=== PATIENT | female | born 1985 | race Caucasian/White ===

== ENCOUNTER 2017-01-24 16:21 | Emergency (ER) | payer OTHER ==
[2017-01-24 17:00] VITALS: BP 132/72
--- NOTE | 2017-01-24 18:59 | RAD ---
HISTORY: Lower abdominal pain, history of ectopic . Gestational age by dates of 5 weeks and 2 days COMPARISONS: None relevant TECHNIQUE: Multiple transverse and longitudinal ultrasound images were obtained of the pelvis using grayscale, color Doppler, spectral Doppler imaging and M-Mode Doppler imaging using the endovaginal transducer. FINDINGS: UTERUS: The uterus is normal in shape, size, contour, and echotexture. GESTATION: A gestational sac is noted without pole.. The mean sac diameter measures 0.7 cm for a gestational age of 5 weeks and 2 days. The ROSA is September 24, 2017. cardiac motion is not detected. Gross movement is not identified. anatomy cannot be assessed secondary to early dates. The amniotic fluid is qualitatively normal. There are no retroplacental fluid collections. CUL-DE-SAC: There is a small amount of simple fluid within the cul-de-sac. This may be physiologic in a reproductive age female. RIGHT OVARY: The right ovary measures 2.7 x 1.1 x 3.3 cm. Normal arterial and venous waveforms are identifiable within the ovary on spectral Doppler imaging. LEFT OVARY: The left ovary measures 4.1 x 2.7 x 3.4 cm. Normal arterial and venous waveforms are identifiable within the ovary on spectral Doppler imaging. A 2.4 cm simple cyst is noted of the left ovary. BLADDER: The bladder is not well visualized. IMPRESSION: A GESTATIONAL SAC IS IDENTIFIED WITHOUT POLE. THE GESTATIONAL AGE BY MEAN SAC DIAMETER IS 5 WEEKS AND 2 DAYS WHICH IS CONCORDANT WITH AGE BY DATES. RECOMMEND FOLLOW-UP EXAMINATION AND CORRELATION WITH SERIAL BETA-HCG LEVELS.
--- NOTE | 2017-01-24 19:09 | ED ---
- HPI Summary HPI Summary: 31F with unknown LMP presents with pelvic pain and ruptured bartholin cyst. She had a previous cyst that was drained by dr Pinzon. She states that she has had the cyst for 7 years and that it caused her no pain till a couple days ago. She states that she made an appointment with dr Pinzon to have it drained but today it ruptured and she had yellow discharge from it and it continues to drain. She states she has some pain and the site but also lower abdominal pain. She has history of ectopic and is concerned is having one. She denies any vaginal bleeding. - History of Current Complaint Chief Complaint: EDOBProblems Stated Complaint: VAGINAL CYST RUPTURED Time Seen by Provider: 01/24/17 17:37 Pain Intensity: 5 - Assessment Hx Now: No - Allergies/Home Medications Allergies/Adverse Reactions: Allergies Allergy/AdvReac Type Severity Reaction Status Date / Time No Known Allergies Allergy Verified 07/10/13 18:39 PMH/Surg Hx/FS Hx/Imm Hx Endocrine/Hematology History: Denies: Hx Diabetes, Hx Thyroid Disease Cardiovascular History: Denies: Hx Hypertension Respiratory History: Denies: Hx Asthma, Hx Chronic Obstructive Pulmonary Disease (COPD) GI History: Denies: Hx Ulcer - Surgical History Surgery Procedure, Year, and Place: csections x2 Infectious Disease History: No Infectious Disease History: Denies: Hx Hepatitis, Hx Human Immunodeficiency Virus (HIV), Traveled Outside the [place] in Last 30 Days - Family History Known Family History: Positive: Hypertension - Social History Alcohol Use: None Substance Use Type: Reports: None Smoking Status (MU): Never Smoked Tobacco Review of Systems Negative: Fever Negative: Chest Pain Negative: Shortness Of Breath Positive: Abdominal Pain - pelvic pain, Other - drainage from cyst. Negative: Vomiting, Diarrhea, Nausea Negative: discharge All Other Systems Reviewed And Are Negative: Yes Physical Exam - Physical Exam Triage Information Reviewed: Yes Vital Signs Reviewed: Yes Appearance: Positive: Well-Appearing Skin: Positive: Warm, Dry Head/Face: Positive: Normal Head/Face Inspection Eyes: Positive: Normal, Conjunctiva Clear ENT: Positive: Normal ENT inspection, Pharynx normal, TMs normal Respiratory/Lung Sounds: Positive: Clear to Auscultation, Breath Sounds Present Cardiovascular: Positive: Normal, RRR Abdomen Description: Positive: Soft, Other: - mild pelvic pain, draining bartholin cyst present with serosangious fluid present, no vaginal bleeding present Bowel Sounds: Positive: Present Diagnostics - Vital Signs Vital Signs Temp Pulse Resp BP Pulse Ox 01/24/17 16:55 99.4 F 70 16 132/72 99 01/24/17 16:25 99.3 F 84 16 144/77 100 - Laboratory Result Diagrams: 01/24/17 19:21 01/24/17 19:21 Lab Statement: Any lab studies that have been ordered have been reviewed, and results considered in the medical decision making process. - Ultrasound No standard instances Ultrasound Interpretation: Positive (See Comments) - IMPRESSION: A GESTATIONAL SAC IS IDENTIFIED WITHOUT POLE. THE GESTATIONAL AGE BY MEAN SAC DIAMETER IS 5 WEEKS AND 2 DAYS WHICH IS CONCORDANT WITH AGE BY DATES. RECOMMEND FOLLOW- UP EXAMINATION AND CORRELATION WITH SERIAL BETA-HCG LEVELS. Ultrasound Interpretation Completed By: Radiologist Course/Dx - Course Course Of Treatment: 31F with unknown LMP presents with pelvic pain and ruptured bartholin cyst. She had a previous cyst that was drained by dr Pinzon. She states that she has had the cyst for 7 years and that it caused her no pain till a couple days ago. She states that she made an appointment with dr Pinzon to have it drained but today it ruptured and she had yellow discharge from it and it continues to drain. She states she has some pain and the site but also lower abdominal pain. She has history of ectopic and is concerned is having one. She denies any vaginal bleeding. on exam mild tenderness in lower abdomen. serosanguinous drainage from cyst. u/s shows iup. told to follow up with dr pinzon. patient understands and agrees with plan - Differential Diagnosis/HQI/PQRI: Bartholin Cyst, Ectopic , Intrauterine - Diagnoses Provider Diagnoses: , Bartholin cyst Discharge - Discharge Plan Condition: Good Disposition: HOME Patient Education Materials: Bartholin Cyst (ED) Referrals: Cherry Ludwig MD [Primary Care Provider] - Chandrakant Pinzon MD [Medical Doctor] - Additional Instructions: Keep area clean Follow up with obgyn Return to ED if develop any new or worsening symptoms
[2017-01-24 19:29] LABS: Hematocrit 39 % (35-47); Hemoglobin 12.7 g/dl (12.0-16.0); Mean Corpuscular HGB Conc 33 g/dl (31-36); Mean Corpuscular Hemoglobin 28 pg (27-31); Mean Corpuscular Volume 85 fL (80-97); Mean Platelet Volume 8 um3 (7.4-10.4); Red Blood Count 4.59 10^6/ul (4.0-5.4); Red Cell Distribution Width 13 % (10.5-15); White Blood Count 6.9 10^3/ul (3.5-10.8)
[2017-01-24 19:42] LABS: Albumin 3.9 g/dL (3.2-5.2); BUN/Creatinine Ratio 11.4 (8-20); Calcium 8.8 mg/dL (8.6-10.3); EGFR African American 109.9 (>60); EGFR Non-African American 85.5 (>60); Globulin 2.7 g/dL (2-4); Total Bilirubin 0.2 mg/dL (0.2-1.0); Total Protein 6.6 g/dL (6.4-8.9)
== END 2017-01-24 20:50 | disposition home or self-care (01) ==
LOC: ED 16:21
DX: Z34.91 Encounter for supervision of normal pregnancy, unspecified, first trimester (principal); N75.0 Cyst of Bartholin's gland; R10.9 Unspecified abdominal pain; R10.2 Pelvic and perineal pain
CPT/HCPCS: 36415; 76817; 80053; 84702; 85025; 86900; 86901; 99282

== ENCOUNTER 2017-09-01 06:04 | Inpatient (IN) | payer MEDICAID ==
[~2017-09-01 06:04] MED LIST: Buffered Lidocaine 0.9% SYRIN* 5 ML/SYR SYRINGE INTRADERM ONE; Famotidine IV* 10 MG/ML 2 ML (20 mg) IV ONE; Sodium Citrate/Citric Acid* 15 ML UDC PO ONE
[2017-09-01] MEDS ORDERED: ceFOXitin(*) 2 GM in NS 0.9% 100 ML* 100 ML IVPB ONE (07:30)
[2017-09-01] MEDS ORDERED: OXYTOCIN* 10 UNITS/ML 1 ML VIAL ONE (07:37)
[2017-09-01] MEDS ORDERED: Morphine PF AMP (0.5MG/ML)* 5 MG/10 ML AMP ONE (07:37)
[2017-09-01] MEDS ORDERED: Dexamethasone IV* 4 MG/ML 1 ML (4 MG) ONE (07:37)
[2017-09-01] MEDS ORDERED: Ondansetron INJ* 2 MG/ML VIAL ONE (07:37)
[2017-09-01] MEDS ORDERED: Atropine 1MG/ML INJ* 1 ML VIAL ONE (08:15)
[2017-09-01] MEDS ORDERED: EPHEDrine (Pressors)* 50 MG/ML VIAL ONE (08:15)
[2017-09-01] MEDS ORDERED: Phenylephrine IV* 40 MCG/ML 10 ML SYRINGE ONE (08:16)
[2017-09-01] MEDS ORDERED: Scopolamine PATCH Remove* 1 NOTE MISC PATCH OFF PRN (08:16)
[2017-09-01] MEDS ORDERED: fentaNYL* 50 MCG/ML 2 ML VIAL (100 MCG VIAL) IV PRN (08:16)
[2017-09-01] MEDS ORDERED: DiMENhydriNATE IV* 50 MG/ML VIAL IV PUSH PRN (08:16)
[2017-09-01] MEDS ORDERED: Ketorolac INJ* 30 MG/ML 1 ML VIAL IV PRN (08:16)
[2017-09-01] MEDS ORDERED: Nalbuphine* 20 MG/ML 1 ML VIAL IV PRN ×2 (08:16)
[2017-09-01] MEDS ORDERED: Ondansetron INJ* 2 MG/ML VIAL IV PRN (08:16)
[2017-09-01] MEDS ORDERED: Naloxone* 0.4 MG/ML 1 ML VIAL IV PRN ×2 (08:16)
[2017-09-01] MEDS ORDERED: oxyCODONE/Acetamin 5/325 MG* TAB PO PRN ×2 (08:16)
[2017-09-01] MEDS ORDERED: Scopolamine 1.5 mg* PATCH TRANSDERM PRN (08:16)
[2017-09-01] MEDS ORDERED: Dibucaine 1% 28.35 GM TUBE PR PRN (09:10)
[2017-09-01] MEDS ORDERED: Witch Hazel PAD* JAR TOPICAL PRN (09:10)
[2017-09-01] MEDS ORDERED: Ibuprofen TAB* 600 MG PO PRN (09:10)
[2017-09-01] MEDS ORDERED: Glycerin ADULT SUPP PR PRN (09:10)
[2017-09-01] MEDS ORDERED: Zolpidem TAB* 5 MG PO PRN (09:10)
[2017-09-01] MEDS ORDERED: Ibuprofen TAB* 600 MG ONE (09:49)
[2017-09-01] MEDS: Ibuprofen TAB* 600 MG PO SCH ×2 (09:52→17:25)
[2017-09-01] MEDS: Docusate CAP* 100 MG PO SCH ×2 (12:25→21:02)
[2017-09-01] MEDS: Simethicone TAB* 80 MG TAB.CHEW PO SCH ×3 (12:25→21:02)
[2017-09-02] MEDS ORDERED: oxyCODONE/Acetamin 5/325 MG* TAB PO PRN ×2
[2017-09-02] MEDS: Ibuprofen TAB* 600 MG PO SCH ×4 (00:16→23:52)
[2017-09-02] MEDS: Acetaminophen TAB* 325 MG PO PRN ×3 (04:18→20:30)
[2017-09-02 06:30] LABS: ABS Basophils 0 10^3/ul (0-0.2); ABS Eosinophils 0.1 10^3/ul (0-0.6); ABS Lymphocytes 1.8 10^3/ul (1.0-4.8); ABS Monocytes 0.8 10^3/ul (0-0.8); ABS Neutrophils 6.5 10^3/ul (1.5-7.7); ABS Nucleated RBC 0 10^3/ul; Eosinophil % 1.2 % (0-6); Hematocrit 34 % (35-47); Hemoglobin 11.5 g/dl (12.0-16.0); Lymphocyte % 19.3 % (25-47); Mean Corpuscular HGB Conc 34 g/dl (31-36); Mean Corpuscular Hemoglobin 28 pg (27-31); Mean Corpuscular Volume 84 fL (80-97); Mean Platelet Volume 8 um3 (7.4-10.4); Nucleated Red Blood Cells % 0.1; Platelet Count 144 10^3/ul (150-450); Red Blood Count 4.08 10^6/ul (4.0-5.4); Red Cell Distribution Width 14 % (10.5-15); White Blood Count 9.2 10^3/ul (3.5-10.8)
[2017-09-02] MEDS: Simethicone TAB* 80 MG TAB.CHEW PO SCH ×4 (09:00→20:29)
[2017-09-02] MEDS: Docusate CAP* 100 MG PO SCH ×3 (09:00→20:30)
[2017-09-02] MEDS ORDERED: Ferrous Gluconate TAB* 324 MG TAB PO SCH (09:00)
[2017-09-02] MEDS: Cephalexin CAP* 500 MG PO SCH (20:30)
--- NOTE | 2017-09-02 22:29 | PTEDU ---
Patient Name: ALEX NIX ALEX NIX selected video: Follow Me Mum: The [place] to Successful to view on 09/02/2017 at 10:28:35 PM [id number]
[2017-09-03] MEDS: Ibuprofen TAB* 600 MG PO SCH (06:52)
[2017-09-03] MEDS: Acetaminophen TAB* 325 MG PO PRN ×2 (06:55→10:50)
[2017-09-03] MEDS: Cephalexin CAP* 500 MG PO SCH (08:02)
[2017-09-03] MEDS: Docusate CAP* 100 MG PO SCH (08:02)
[2017-09-03] MEDS: Simethicone TAB* 80 MG TAB.CHEW PO SCH (08:02)
[2017-09-03 08:55] VITALS: BP 140/91
--- NOTE | 2017-09-06 01:06 | OP ---
DATE OF OPERATION: 09/01/17 - ROOM #117 DATE OF : 87 SURGEON: Chandrakant Waddell MD JET PIERCER OPERATOR: Dr. Milton. ANESTHESIA: Spinal. PRE-OP DIAGNOSIS: Intrauterine at 37 weeks with a prior classical uterine incision, prior section and the patient desires permanent sterilization. POST-OP DIAGNOSIS: Intrauterine at 37 weeks with a prior classical uterine incision, prior section and the patient desires permanent sterilization. OPERATIVE PROCEDURE: Repeat low-transverse section and a right fimbriectomy. Preoperatively, she also had a previous left salpingectomy. ESTIMATED BLOOD LOSS: 700 cc. SPECIMENS SENT TO PATHOLOGY: Right tubal fimbria and cord blood. FLUIDS: She received 1700 cc of IV crystalloid fluid. URINE OUTPUT: Clear. FINDINGS: Delivery of a male weighing 6 pounds and 6 ounces with ' s of 10 and 10. The placenta, uterus, right tube and ovary were within normal limits. The left ovary is within normal limits. There is evidence of a prior salpingectomy of the left tube and bowel and bladder were within normal limits. There were no complications during this procedure. DESCRIPTION OF PROCEDURE: The patient was taken to the operating room, where she was identified. She was placed on the operating table, where a spinal anesthetic was obtained without difficulty. She was placed in the supine position with a leftward tilt, prepped and draped in the normal sterile fashion. A Pfannenstiel skin incision was made with a knife and carried through to underlying layer of fascia. The fascia was nicked in the midline and extended laterally with curved Velazquez scissors. The fascia was grasped superiorly and inferiorly with Rich clamps and dissected off sharply from the rectus muscle. The rectus muscle was in the midline bluntly. The peritoneum was identified, grasped with pickups, and entered sharply with Metzenbaum scissors. The peritoneum was then extended laterally bluntly. The bladder blade was inserted into the patient's abdomen and a bladder flap was created using Metzenbaum scissors over which the bladder blade was then reinserted. A low-transverse uterine incision was made with a knife and extended laterally with curved Velazquez scissors. The amniotic sac was ruptured. Fluid was noted to be clear. The 's head was then delivered atraumatically , the rest of the body was delivered. The cord was clamped and cut. The infant was then given to the multiple games dealer. Cord bloods were obtained. The placenta was removed manually. The uterus was then exteriorized and cleared of all clots and debris using moist laparotomy sponges. The uterine incision was closed using 0 Polysorb suture in a running locked fashion, the second imbricating layer of 0 Polysorb suture. Closed the uterine incision and it was noted to be hemostatic. Attention was then brought on to the patient's right fallopian tube with a right fimbriectomy was done in a usual fashion using 3-0 Polysorb suture. The portion of the right fimbria was sent to pathology. At this point , the uterus was returned to the patient's abdomen. The gutters were then cleared of all clot and debris using moist laparotomy sponges. All the sponges and instruments were removed from the patient's abdomen. The peritoneum was closed using 3-0 Polysorb suture in a running fashion. The fascia was closed using 0 Polysorb suture in a running fashion. The skin was closed with Monocryl subcuticular stitch. The patient tolerated the procedure well. Sponge , lap, and needle counts were correct x2. She was then transferred to the recovery room area in stable condition. [id number]/[facility] #: [id number] MTDD
== END 2017-09-03 11:03 | disposition home or self-care (01) | DRG 540 ==
LOC: MCHOB 06:04
PROVIDERS: ADMIT Obstetrics & Gynecology; ATTEND Obstetrics & Gynecology
PROC: 0UB50ZZ Excision of Right Fallopian Tube, Open Approach (ICD-10-PCS; 2017-09-01)
PROC: 10D00Z1 Extraction of Products of Conception, Low, Open Approach (ICD-10-PCS; principal; 2017-09-01 07:45)
DX: O34.211 Maternal care for low transverse scar from previous cesarean delivery (principal); D64.9 Anemia, unspecified; O90.81 Anemia of the puerperium; Z3A.37 37 weeks gestation of pregnancy; Z37.0 Single live birth
CPT/HCPCS: 36415; 85025; 88305; A9270-GY; J0461; J0694; J1100; J2405; J2590

== ENCOUNTER 2018-02-14 18:00 | Emergency (ER) | payer MEDICAID ==
[2018-02-14 18:39] VITALS: BP 155/92
--- NOTE | 2018-02-14 19:05 | UC ---
HPI Febrile Illness - HPI Summary HPI Summary: 32-year-old female presents with onset of sore throat and fever this morning. Reports she has had episodes of strep throat in the past however none in the last several years. Fever at home as been as high as 101 F. Associated with a mild headache. Denies dysphagia, nasal congestion or drainage, ear pain or drainage, cough, shortness of breath, chest pain, abdominal pain, nausea, vomiting, diarrhea, dysuria, frequency, urgency, hematuria, or vaginal discharge. She lives at home with her partner and 4 children including an . She is presently breast-feeding just at night. Denies any sick contact. Last menstrual period was approximately 2 weeks ago. Past surgical history significant for tubal ligation with her last . - History of Current Complaint Chief Complaint: UCGeneralIllness Time Seen by Provider: 02/14/18 18:33 Hx Obtained From: Patient Hx Last Menstrual Period: 01/28/18 Timing: Constant Initial Severity: Moderate Current Severity: Moderate Pain Intensity: 6 Aggravating Factors: Other: - Swallowing Alleviating Factors: OTC Medicine Associated Signs and Symptoms: Chills, Sore Throat - Risk Factors Serious Bacterial Infection Risk Factors: Negative - Allergy/Home Medications Allergies/Adverse Reactions: Allergies Allergy/AdvReac Type Severity Reaction Status Date / Time No Known Allergies Allergy Verified 02/14/18 18:39 PMH/Surg Hx/FS Hx/Imm Hx - Additional Past Medical History Additional PMH: Noncontributory - Surgical History Surgical History: Yes Surgery Procedure, Year, and Place: csections x2 - Family History Known Family History: Positive: Hypertension - Social History Occupation: Employed Full-time Lives: With Family Alcohol Use: None Substance Use Type: None Smoking Status (MU): Never Smoked Tobacco - Immunization History Most Recent Influenza Vaccination: 04/11/17 Most Recent Pneumonia Vaccination: none Review of Systems Constitutional: Fever, Chills Skin: Negative Eyes: Negative ENT: Sore Throat Respiratory: Negative Cardiovascular: Negative Gastrointestinal: Negative Genitourinary: Negative Is Patient Immunocompromised?: No All Other Systems Reviewed And Are Negative: Yes Physical Exam Triage Information Reviewed: Yes Appearance: Well-Appearing, No Pain Distress, Well-Nourished Vital Signs: Initial Vital Signs Temp 100.7 F 02/14/18 18:35 Pulse 124 02/14/18 18:35 Resp 20 02/14/18 18:35 BP 155/92 02/14/18 18:35 Pulse Ox 99 02/14/18 18:35 Eyes: Positive: Conjunctiva Clear ENT: Positive: Hearing grossly normal, Pharyngeal erythema, TMs normal, Tonsillar swelling - 3+, Tonsillar exudate, Uvula midline. Negative: Nasal congestion, Nasal drainage, Trismus, Muffled voice, Hoarse voice, Sinus tenderness Neck: Positive: Supple, Nontender, Enlarged Nodes @ - Bilateral anterior cervical Respiratory: Positive: Lungs clear, Normal breath sounds, No respiratory distress Cardiovascular: Positive: RRR, No Murmur, Tachycardia Abdomen Description: Positive: Nontender, No Organomegaly, Soft. Negative: CVA Tenderness (R), CVA Tenderness (L) Bowel Sounds: Positive: Present Skin Exam: Normal Course/Dx - Course Course Of Treatment: 32-year-old female presents with onset of sore throat and fever this morning. Rapid strep was negative however on exam she has 3+ erythematous tonsils with exudate and anterior cervical lymphadenopathy that is very suspicious for strep throat. She has an at home and is currently breast feeding at night. Will obtain a throat culture and begin empiric treatment for strep throat with amoxicillin 500 mg twice a day 10 days pending these results. Recommend additional conservative therapies including pushing fluids, salt water gargles, and [id number] acetaminophen or ibuprofen as needed for fever or pain. Follow up with primary care provider if no improvement in symptoms. - Diagnoses Clinic Provider Diagnoses: Acute pharyngitis suspect group A strep infection Discharge - Sign-Out/Discharge Documenting (check all that apply): Patient Departure - Discharge Plan Condition: Stable Disposition: HOME Prescriptions: Amoxicillin 500 mg PO BID #20 capsule Patient Education Materials: Pharyngitis (ED) Referrals: Cherry Ludwig MD [Primary Care Provider] - If Needed Additional Instructions: Your rapid strep test in the clinic today was negative however her exam is very suspicious for strep throat. We will start to on an antibiotic pending the results of the throat culture that was obtained today. It will take 48-72 hours to obtain these results. Please call in 3 days if you have not heard from us. Start amoxicillin 500 mg twice daily for 10 days. He should complete the entire course of antibiotic even if you're feeling better. Take [id number] acetaminophen (Tylenol) or ibuprofen (Advil, Motrin) according directions as needed for fever or pain. Be sure to drink plenty of fluids. Use salt water gargles several times throughout the day for your sore throat. After you've been on your antibiotics for at least 3 days change out her toothbrush to prevent reinfection. Follow up with her primary care provider if there is no improvement in her symptoms. - Billing Disposition and Condition Condition: STABLE Disposition: Home
== END 2018-02-14 19:25 | disposition home or self-care (01) ==
LOC: UCEAST 18:00
DX: J02.9 Acute pharyngitis, unspecified (principal)
CPT/HCPCS: 87070; 87651; 99212; G0463

== ENCOUNTER 2019-06-24 10:22 | Emergency (ER) | payer MEDICAID, OTHER ==
[2019-06-24 10:35] VITALS: BP 110/78
--- NOTE | 2019-06-24 10:53 | UC ---
FLU HPI - HPI Summary HPI Summary: 34-year-old female presents with 4 day history of general malaise, body aches, nasal congestion, postnasal drip, sore throat, and occasional dry nonproductive cough. Her son is sick with similar symptoms. Denies fever, chills, ear pain, dysphagia, chest pain, difficulty breathing, abdominal pain, nausea, vomiting, or diarrhea. - History of Current Complaint Chief Complaint: UCRespiratory Stated Complaint: HEADACHE,COUGH Time Seen by Provider: 06/24/19 10:37 Hx Obtained From: Patient Hx Last Menstrual Period: 05/27/19 Pain Intensity: 6 - Allergy/Home Medications Allergies/Adverse Reactions: Allergies Allergy/AdvReac Type Severity Reaction Status Date / Time adhesive tape Allergy itchy hives Verified 06/24/19 10:36 PMH/Surg Hx/FS Hx/Imm Hx Previously Healthy: Yes - Denies significant PMH - Surgical History Surgical History: Yes Surgery Procedure, Year, and Place: csections x3 tubal x 2. 09/01/17 - Family History Known Family History: Positive: Hypertension - Social History Occupation: Unemployed Lives: With Family Alcohol Use: None Substance Use Type: None Smoking Status (MU): Never Smoked Tobacco - Immunization History Most Recent Influenza Vaccination: 04/11/17 Most Recent Pneumonia Vaccination: none Review of Systems All Other Systems Reviewed And Are Negative: Yes Constitutional: Negative: Fever, Chills Skin: Negative: Rash Eyes: Negative: Drainage, Eye Redness ENT: Positive: Sore Throat, Nasal Discharge, Sinus Congestion. Negative: Ear Ache, Sinus Pain/Tenderness Respiratory: Positive: Cough. Negative: Shortness Of Breath Cardiovascular: Negative: Chest Pain Gastrointestinal: Negative: Abdominal Pain, Vomiting, Diarrhea, Nausea Genitourinary: Positive: Negative Musculoskeletal: Positive: Myalgia Neurological: Positive: Negative Is Patient Immunocompromised?: No Physical Exam - Summary Physical Exam Summary: GENERAL APPEARANCE: Well developed, well nourished, alert and cooperative, and appears to be in no acute distress. EYES: Conjunctiva clear. No drainage. EARS: External auditory canals and tympanic membranes clear, hearing grossly intact. NOSE: Mild-moderate nasal congestion. No nasal discharge. THROAT: Mild pharyngeal erythema with postnasal drip. No tonsilar inflammation, swelling, exudate, or lesions. Uvula midline. NECK: Neck supple, non-tender without lymphadenopathy. CARDIAC: Normal S1 and S2. No S3, S4 or murmurs. Rhythm is regular. There is no peripheral edema, cyanosis or pallor. Extremities are warm and well perfused. Capillary refill is less than 2 seconds. Peripheral pulses intact. LUNGS: Clear to auscultation without rales, rhonchi, wheezing or diminished breath sounds. Dry, nonproductive cough. ABDOMEN: Positive bowel sounds. Soft, nondistended, nontender. No guarding or rebound. No masses or hepatosplenomegally. MUSKULOSKELETAL: ROM intact to all extremities. No joint erythema or tenderness. Normal muscular development. Normal gait. SKIN: Skin normal color, texture and turgor with no lesions or eruptions. Triage Information Reviewed: Yes Vital Signs: Initial Vital Signs Temp 98 F 06/24/19 10:33 Pulse 100 06/24/19 10:33 Resp 20 06/24/19 10:33 BP 110/78 06/24/19 10:33 Pulse Ox 98 06/24/19 10:33 Vital Signs Reviewed: Yes Flu Course/Dx - Course Course Of Treatment: 34-year-old female presents with 4 day history of general malaise, body aches, nasal congestion, postnasal drip, sore throat, and occasional dry nonproductive cough. Her son is sick with similar symptoms. Denies fever, chills, ear pain, dysphagia, chest pain, difficulty breathing, abdominal pain, nausea, vomiting, or diarrhea. Afebrile. Vital signs stable. Patient had mild to moderate nasal congestion, pharyngeal erythema with postnasal drip, no tonsillar swelling or exudate, no cervical lymphadenopathy, clear bilateral breath sounds , dry nonproductive cough, but otherwise unremarkable exam. Rapid strep test was negative. Recommending symptomatically treatment for a viral upper respiratory infection. She is to follow-up with her primary care provider in 3- 5 days if symptoms are not improving. Anticipatory guidance warning symptoms reviewed with the patient. Verbalized understanding and agrees with plan of care. - Differential Dx/Diagnosis Differential Diagnosis/HQI/PQRI: Bronchitis, Influenza, Pneumonia, Upper Respiratory Infection Provider Diagnosis: Upper respiratory infection, acute Discharge ED - Sign-Out/Discharge Documenting (check all that apply): Patient Departure All imaging exams completed and their final reports reviewed: No Studies - Discharge Plan Condition: Stable Disposition: HOME Patient Education Materials: Upper Respiratory Infection (ED) Referrals: Cherry Ludwig MD [Primary Care Provider] - 3 Days (Follow up in 3-5 days if symptoms persist.) Additional Instructions: The rapid strep test performed in the clinic today was negative. Your history and exam are consistent with a viral upper respiratory infection. Viral infections do not respond to antibiotics and are limited to the treatment of symptoms. Viral infections typically run their course in 7-10 days. Drink plenty of fluids to avoid dehydration especially if you are running any fever. Use a saline rinse kit such as Neti Pot or NeilMed at least twice a day to help thin secretions and promote drainage of the sinuses. Use fluticasone (Flonase) nasal spray 2 sprays each nostril once daily. Use an over the counter decongestant such as Sudafed according to directions for any congestion. Take over the counter acetaminophen (Tylenol) or ibuprofen (Advil, Motrin) according to directions as needed for pain or fever. Use salt water gargles several times a day if you have a sore throat. You may also use Chloraseptic spray or Cepacol lonzenges according to directions which contain a numbing medication and can provide some temporary relief from your sore throat. Follow up with your primary care provider in 3-5 days if symptoms persist. Seek immediate medical attention in the emergency room if you have fever greater than 100.5 F despite taking acetaminophen or ibuprofen, have chest pain , difficulty breathing, are unable to swallow, or have any worsening of symptoms. - Billing Disposition and Condition Condition: STABLE Disposition: Home
== END 2019-06-24 11:36 | disposition home or self-care (01) ==
LOC: UCEAST 10:22
DX: J06.9 Acute upper respiratory infection, unspecified (principal); Z91.09 Other allergy status, other than to drugs and biological substances
CPT/HCPCS: 87651; 99211; G0463

== ENCOUNTER 2019-07-08 21:30 | Emergency (ER) | payer OTHER ==
[2019-07-08 21:42] VITALS: BP 140/84
--- NOTE | 2019-07-08 21:57 | UC ---
General HPI - HPI Summary HPI Summary: Patient is a 34-year-old female presenting with possible pinkeye of right eye, nasal congestion, postnasal drip, sinus tenderness, and sore throat 1 month. Patient states she was seen here approximately one month ago and diagnosed with viral upper respiratory infection. Patient states postnasal drip and sinus symptoms have gradually worsened since. Notes cough worsening due to postnasal drip. Denies shortness of breath and wheezing. Patient states sore throat has not resolved either, with the left side hurting worse than the right. Patient also notes "lump" on the left side of her neck. She states yellow discharge and redness of right eye began today. Denies vision changes. Notes fatigue. Denies fever or chills. Denies nausea and vomiting. - History of Current Complaint Chief Complaint: UCEye Stated Complaint: PINK EYE, COUGH Time Seen by Provider: 07/08/19 21:36 Hx Obtained From: Patient Hx Last Menstrual Period: 06/26/2019 Onset/Duration: Gradual Onset, Lasting Weeks Current Severity: Moderate Pain Intensity: 5 - Allergy/Home Medications Allergies/Adverse Reactions: Allergies Allergy/AdvReac Type Severity Reaction Status Date / Time adhesive tape Allergy itchy hives Verified 06/24/19 10:36 PMH/Surg Hx/FS Hx/Imm Hx Previously Healthy: Yes - Surgical History Surgical History: Yes Surgery Procedure, Year, and Place: csections x3 tubal x 2. 09/01/17 - Family History Known Family History: Positive: Hypertension - Social History Alcohol Use: None Substance Use Type: None Smoking Status (MU): Never Smoked Tobacco - Immunization History Most Recent Influenza Vaccination: 04/11/17 Most Recent Pneumonia Vaccination: none Review of Systems All Other Systems Reviewed And Are Negative: Yes Constitutional: Positive: Fatigue. Negative: Fever, Chills Eyes: Positive: Drainage - yellow drainage R eye, Eye Redness - right. Negative : Photophobia ENT: Positive: Sore Throat - worse on Left, Nasal Discharge - PND, Sinus Congestion, Sinus Pain/Tenderness Respiratory: Positive: Cough. Negative: Shortness Of Breath Cardiovascular: Positive: Negative Gastrointestinal: Positive: Negative Musculoskeletal: Positive: Negative Neurological: Positive: Negative Physical Exam Triage Information Reviewed: Yes Appearance: Well-Appearing, No Pain Distress, Well-Nourished Vital Signs: Initial Vital Signs Temp 97.7 F 07/08/19 21:36 Pulse 73 07/08/19 21:36 Resp 16 07/08/19 21:36 BP 140/84 07/08/19 21:36 Pulse Ox 98 07/08/19 21:36 Lab Results 07/08/19 Range/Units 22:10 Group A Strep Rapid Negative (Negative) Vital Signs Reviewed: Yes Eye Exam: Other - PERRLA. EOM intact Eyes: Positive: Conjunctiva Inflamed - right, Discharge - yellow drainage ENT: Positive: Hearing grossly normal, Pharyngeal erythema, Nasal congestion, Nasal drainage - PND, TMs normal, Tonsillar swelling - b/l, Sinus tenderness - maxillary, Uvula midline. Negative: Tonsillar exudate, Trismus, Muffled voice, Hoarse voice Neck: Positive: Supple, Tenderness @ - tonsillar nodes, Enlarged Nodes @ - tonsillar and left posterior cervical node Respiratory Exam: Normal Respiratory: Positive: Lungs clear, Normal breath sounds, No respiratory distress. Negative: Crackles, Rhonchi, Stridor, Wheezing Cardiovascular Exam: Normal Cardiovascular: Positive: RRR Neurological: Positive: Alert Psychological: Positive: Age Appropriate Behavior Skin Exam: Normal Course/Dx - Course Course Of Treatment: I treated patient with cipro ophth ointment for bacterial conjunctivitis. I treated patient for sinusitis with doxycycline and instructed to continue with symptomatic treatment. Patient agreed to testing for mononucleosis today as well for pharyngitis, swollen nodes, and negative strep tests x2 over the past month. Informed patient that she would be notified with positive results. Instructed patient to continue with symptomatic treatment and follow up with pcp if symptoms persist. Patient voiced understanding and agreed with treatment plan. - Differential Dx - Multi-Symptom Differential Diagnoses: Other - mononucleosis - Diagnoses Provider Diagnosis: Bacterial conjunctivitis of right eye, Pharyngitis, Sinusitis Discharge ED - Sign-Out/Discharge Documenting (check all that apply): Patient Departure All imaging exams completed and their final reports reviewed: No Studies - Discharge Plan Condition: Stable Disposition: HOME Prescriptions: DOXYcycline CAP(*) [DOXYcycline 100MG CAP(*)] 100 mg PO BID #13 cap Patient Education Materials: Pharyngitis (ED), Sinusitis (ED), Conjunctivitis ( ED) Referrals: Cherry Ludwig MD [Primary Care Provider] - If Needed Additional Instructions: As discussed, take doxycycline for the treatment of your sinus infection. You received the first dose tonight. You may use nasal saline spray or Flonase for symptomatic relief. You may take ibuprofen or tylenol as directed for pain relief. Apply the antibiotic eye drops as directed for treatment of bacterial conjunctivitis. Get plenty of rest and fluids. You were tested for mono today. You will be notified with any positive results. Follow up with your primary care doctor if your symptoms worsen or do not resolve within 7-10 days. - Billing Disposition and Condition Condition: STABLE Disposition: Home
[2019-07-08] MEDS ORDERED: Ciprofloxacin 0.3% OPTH.SOL* BTL RIGHT EYE ONE (22:08)
[2019-07-08] MEDS ORDERED: DOXYcycline CAP(*) 100 MG PO ONE (22:10)
--- NOTE | 2019-07-09 14:55 | UC ---
- Progress Note Progress Note: Monospot positive. May continue doxy for sinuses. Recommend rest and tylenol for discomfort. Avoid contact sports. Course/Dx - Diagnoses Provider Diagnoses: Bacterial conjunctivitis of right eye, Pharyngitis, Sinusitis Discharge ED - Sign-Out/Discharge Documenting (check all that apply): Post-Discharge Follow Up All imaging exams completed and their final reports reviewed: No Studies - Discharge Plan Condition: Stable Disposition: HOME Prescriptions: DOXYcycline CAP(*) [DOXYcycline 100MG CAP(*)] 100 mg PO BID #13 cap Patient Education Materials: Pharyngitis (ED), Sinusitis (ED), Conjunctivitis ( ED) Referrals: Cherry Ludwig MD [Primary Care Provider] - If Needed Additional Instructions: As discussed, take doxycycline for the treatment of your sinus infection. You received the first dose tonight. You may use nasal saline spray or Flonase for symptomatic relief. You may take ibuprofen or tylenol as directed for pain relief. Apply the antibiotic eye drops as directed for treatment of bacterial conjunctivitis. Get plenty of rest and fluids. You were tested for mono today. You will be notified with any positive results. Follow up with your primary care doctor if your symptoms worsen or do not resolve within 7-10 days. - Billing Disposition and Condition Condition: STABLE Disposition: Home
== END 2019-07-08 22:36 | disposition home or self-care (01) ==
LOC: UCEAST 21:30
DX: H10.9 Unspecified conjunctivitis (principal); B96.89 Other specified bacterial agents as the cause of diseases classified elsewhere; J02.9 Acute pharyngitis, unspecified; J32.9 Chronic sinusitis, unspecified; Z91.09 Other allergy status, other than to drugs and biological substances
CPT/HCPCS: 36415; 86308; 87651; 99212; A9270-GY; G0463